=== PATIENT | female | born 1930 | race Caucasian/White ===

== ENCOUNTER 2016-11-25 13:08 | Inpatient (IN) ==
--- NOTE | 2016-11-25 13:27 | Emergency Department Note ---
Disposition Clinical Impression: Cerebrovascular accident (CVA) involving cerebellum Disposition: Admitted As Inpatient Condition: Fair Time of Disposition: 14:28 General Adult HPI - General Chief complaint: ED Altered Mental Status Stated complaint: AMS Time Seen by Provider: 11/25/16 13:14 Source: EMS Mode of arrival: EMS Limitations: altered mental status Nursing Notes Reviewed: Yes Vital Signs Reviewed: Yes - History of Present Illness HPI Narrative: 86-year-old female who has a history of hypertension who comes in today with the generalized weakness and some alteration in mental status. Patient is awake eyes are open but slow to respond on arrival. The daughter indicates that the patient does drink alcohol on a daily basis. Last known well is 1:30 PM on 2016. Onset (ago): unknown (Daughter dropped the patient off it 1:30 in the afternoon yesterday and she was found today in bed.) Pain Scale: 0 - Related Data Home Medications Medication Instructions Recorded Confirmed Cholecalciferol (Vitamin D3) 2,000 unit PO DAILY 11/25/16 11/25/16 [Vitamin D] Losartan/HCTZ [Hyzaar 50-12.5 1 each PO DAILY 11/25/16 11/25/16 Tablet] Meloxicam [Mobic] 7.5 mg PO DAILY 11/25/16 11/25/16 Allergies Allergy/AdvReac Type Severity Reaction Status Date / Time Unable to Assess Allergy Unverified 11/25/16 14:44 All systems ED: reviewed and negative except as stated. Constitutional: Denies: fever, chills, weakness, weight change Eyes: Denies: eye pain, eye discharge, vision change ENT ED: Denies: ear pain, throat pain, dental pain, hearing loss, epistaxis, congestion, dysphagia Cardiovascular: Denies: chest pain, palpitations, dyspnea on exertion, edema, syncope Respiratory: Denies: cough, dyspnea, wheezes, hemoptysis, stridor Gastrointestinal: Denies: abdominal pain, nausea, vomiting, diarrhea, constipation, hematemesis, melena, hematochezia Genitourinary: Denies: dysuria, frequency, hematuria, discharge Musculoskeletal: Denies: back pain, neck pain, arthralgia, myalgia Integumentary: Denies: rash, abrasion, lesions Neurological: Reports: weakness (Generalized). Denies: headache, numbness, paresthesias, confusion, abnormal gait, vertigo Psychiatric: Denies: anxiety, depression, suicidal thoughts, homicidal thoughts , auditory hallucinations, visual hallucinations Endocrine: Denies: fatigue Hematological/Lymphatic: Denies: easy bleeding, easy bruising Allergic/Immunologic: Denies: facial swelling, urticaria Past Medical History - Past Medical History Medical history: Reports: hypertension Psychiatric history: Reports: other - Social History Smoking Status: Former smoker Smokeless Tobacco Status: No Alcohol use: Reports: heavy Drug use: Reports: none Physical Exam - General Limitations: altered mental status General appearance: alert - Head Head exam: atraumatic, normocephalic, normal inspection - Eye Eye exam: Present: normal appearance, PERRL, EOMI - ENT ENT exam: normal exam, normal oropharynx, mucous membranes moist - Neck Neck exam: Present: normal inspection, full ROM, trachea midline - Chest Chest inspection: Present: normal inspection, symmetric chest wall rise - Respiratory Respiratory exam: Present: normal lung sounds bilaterally - Cardiovascular Cardiovascular exam: Present: regular rate, normal rhythm, normal heart sounds - Abdominal Exam Abdominal exam: Present: soft, Non-Tender. Absent: tenderness, distention, guarding, rebound, rigidity - Extremities Exam Extremities exam: Present: normal inspection, full ROM. Absent: tenderness, pedal edema - Expanded Lower Extremity Exam Neurovascular/Tendon exam: Absent: motor deficit, sensory deficit, tendon deficit Gait: not tested/not observed - Back Exam Back exam: Present: normal inspection, full ROM. Absent: tenderness - Neurological Exam Neurological exam: Present: alert, other (Patient is slow to response). Absent : motor sensory deficit - Psychiatric Psychiatric exam: Present: normal affect - Skin Skin exam: Present: warm, dry, intact, normal color Course - Reevaluation(s) Reevaluation #1: 86-year-old female who was her normal state of health dropped off by family yesterday about 1:30 PM this morning when the family tried to call she didn't answer they went over to her house and found her in the bed she couldn't get out. ER she is about 24 hours into her symptoms. She is awake but slow to respond. CT scan was obtained and shows a subacute versus acute cerebellar infarct. Case was discussed with neurology who feels that they are not a TPA candidate. Patient will be admitted to the hospitalist for further evaluation and treatment. Time: 15:33 - Consultations Consultation #1: Discussed with , not a TPA candidate based on onset of symptoms unknown up to 24 hours ago. Time: 14:27 Consultation #2: Discussed with Dr. Desai, admit. Time: 15:32 Vital Signs Temperature 97.4 F L 11/25/16 13:12 Pulse Rate 81 11/25/16 13:12 Respiratory Rate 18 11/25/16 13:12 Blood Pressure 187/108 11/25/16 13:12 O2 Sat by Pulse Oximetry 97 11/25/16 13:12 Temperature 97.4 F L 11/25/16 13:12 Pulse Rate 78 11/25/16 14:11 Respiratory Rate 18 11/25/16 14:11 Blood Pressure 171/96 11/25/16 14:11 O2 Sat by Pulse Oximetry 98 11/25/16 14:11 Oxygen Delivery Oxygen Delivery Room Air Medical Decision Making - Lab Data Lab results reviewed: Yes I reviewed the patient's lab results. Result diagrams: 11/25/16 13:53 11/25/16 13:53 Lab Results 11/25/16 11/25/16 11/25/16 Range/Units 13:18 13:53 13:53 WBC 11.2 H (4.3-11.1) K/mcL RBC 4.36 (3.82-4.97) M/mcL Hgb 13.5 (11.5-15.4) g/dL Hct 39.6 (35.3-44.9) % MCV 90.8 (83.0-100.0) fL MCH 31.0 (28.0-33.3) pg MCHC 34.1 (31.6-35.5) g/dL RDW 12.6 (11.5-14.5) % Plt Count 324 (140-400) K/mcL MPV 9.8 (9.4-12.4) fL Immature Gran % 0.4 (0-4) % Seg Neutrophils % 77.2 % Lymphocytes % 15.3 % Monocytes % 6.3 % Eosinophils % 0.4 % Basophils % 0.4 % Neutrophils # 8.6 (1.6-8.9) K/mcL Lymphocytes # 1.7 (0.6-4.6) K/mcL Monocytes # 0.7 (0.0-1.3) K/mcL Eosinophils # 0.1 (0.0-0.6) K/mcL Basophils # 0.0 (0.0-0.2) K/mcL PT 10.6 (9.4-12.1) Seconds INR 1.0 APTT 29.6 (26.0-36.0) Seconds Sodium (136-145) mEq/L Potassium (3.5-4.5) mEq/L Chloride (98-109) mEq/L Carbon Dioxide (19-29) mEq/L BUN (7-20) mg/dL Creatinine (0.57-1.11) mg/dL Est GFR ( Amer) (> 60) Est GFR (Non-Af Amer) (> 60) BUN/Creatinine Ratio (6-26) Glucose (70-99) mg/dL POC Glucose 97 H (58-89) Calculated Osmolality (280-300) Lactic Acid (0.5-2.2) mmol/L Calcium (8.6-10.8) mg/dL Total Bilirubin (0.2-1.2) mg/dL Direct Bilirubin (0.0-0.5) mg/dL Indirect Bilirubin (0.0-1.2) mg/dL AST (5-34) Units/L ALT (0-55) Units/L Alkaline Phosphatase (38-126) Units/L Troponin I (0-0.03) ng/mL Serum Total Protein (6.0-8.3) g/dL Albumin (3.5-5.0) g/dL Globulin (2.4-3.5) g/dL Albumin/Globulin Ratio (1.1-2.2) Ethyl Alcohol (0-10) mg/dL 11/25/16 11/25/16 11/25/16 Range/Units 13:53 13:53 13:53 WBC (4.3-11.1) K/mcL RBC (3.82-4.97) M/mcL Hgb (11.5-15.4) g/dL Hct (35.3-44.9) % MCV (83.0-100.0) fL MCH (28.0-33.3) pg MCHC (31.6-35.5) g/dL RDW (11.5-14.5) % Plt Count (140-400) K/mcL MPV (9.4-12.4) fL Immature Gran % (0-4) % Seg Neutrophils % % Lymphocytes % % Monocytes % % Eosinophils % % Basophils % % Neutrophils # (1.6-8.9) K/mcL Lymphocytes # (0.6-4.6) K/mcL Monocytes # (0.0-1.3) K/mcL Eosinophils # (0.0-0.6) K/mcL Basophils # (0.0-0.2) K/mcL PT (9.4-12.1) Seconds INR APTT (26.0-36.0) Seconds Sodium 141 (136-145) mEq/L Potassium 3.6 (3.5-4.5) mEq/L Chloride 106 (98-109) mEq/L Carbon Dioxide 27 (19-29) mEq/L BUN 15 (7-20) mg/dL Creatinine 0.78 (0.57-1.11) mg/dL Est GFR ( Amer) > 60 (> 60) Est GFR (Non-Af Amer) > 60 (> 60) BUN/Creatinine Ratio 19 (6-26) Glucose 106 H (70-99) mg/dL POC Glucose (58-89) Calculated Osmolality 293 (280-300) Lactic Acid (0.5-2.2) mmol/L Calcium 10.0 (8.6-10.8) mg/dL Total Bilirubin 0.8 (0.2-1.2) mg/dL Direct Bilirubin 0.3 (0.0-0.5) mg/dL Indirect Bilirubin 0.5 (0.0-1.2) mg/dL AST 18 (5-34) Units/L ALT 8 (0-55) Units/L Alkaline Phosphatase 74 (38-126) Units/L Troponin I 0.00 (0-0.03) ng/mL Serum Total Protein 6.7 (6.0-8.3) g/dL Albumin 3.7 (3.5-5.0) g/dL Globulin 3.0 (2.4-3.5) g/dL Albumin/Globulin Ratio 1.2 (1.1-2.2) Ethyl Alcohol < 10 (0-10) mg/dL 11/25/16 Range/Units 13:54 WBC (4.3-11.1) K/mcL RBC (3.82-4.97) M/mcL Hgb (11.5-15.4) g/dL Hct (35.3-44.9) % MCV (83.0-100.0) fL MCH (28.0-33.3) pg MCHC (31.6-35.5) g/dL RDW (11.5-14.5) % Plt Count (140-400) K/mcL MPV (9.4-12.4) fL Immature Gran % (0-4) % Seg Neutrophils % % Lymphocytes % % Monocytes % % Eosinophils % % Basophils % % Neutrophils # (1.6-8.9) K/mcL Lymphocytes # (0.6-4.6) K/mcL Monocytes # (0.0-1.3) K/mcL Eosinophils # (0.0-0.6) K/mcL Basophils # (0.0-0.2) K/mcL PT (9.4-12.1) Seconds INR APTT (26.0-36.0) Seconds Sodium (136-145) mEq/L Potassium (3.5-4.5) mEq/L Chloride (98-109) mEq/L Carbon Dioxide (19-29) mEq/L BUN (7-20) mg/dL Creatinine (0.57-1.11) mg/dL Est GFR ( Amer) (> 60) Est GFR (Non-Af Amer) (> 60) BUN/Creatinine Ratio (6-26) Glucose (70-99) mg/dL POC Glucose (58-89) Calculated Osmolality (280-300) Lactic Acid 1.1 (0.5-2.2) mmol/L Calcium (8.6-10.8) mg/dL Total Bilirubin (0.2-1.2) mg/dL Direct Bilirubin (0.0-0.5) mg/dL Indirect Bilirubin (0.0-1.2) mg/dL AST (5-34) Units/L ALT (0-55) Units/L Alkaline Phosphatase (38-126) Units/L Troponin I (0-0.03) ng/mL Serum Total Protein (6.0-8.3) g/dL Albumin (3.5-5.0) g/dL Globulin (2.4-3.5) g/dL Albumin/Globulin Ratio (1.1-2.2) Ethyl Alcohol (0-10) mg/dL - Radiology Data Radiology results reviewed: Yes I reviewed the patient's radiology results. Chest X-Ray 11/25/16 13:18 IMPRESSION: No acute cardiopulmonary disease is appreciated. D/ / Erik Gallardo MD / Erik Gallardo MD Interpreting Provider: Erik Gallardo MD Head CT 11/25/16 13:18 IMPRESSION: Areas of decreased attenuation without CSF equivalence in left cerebellar hemisphere concerning for areas of infarct felt more likely to be subacute, but acute infarct not excluded. Findings compatible with age related atrophy and likely chronic small vessel ischemic change along with multiple chronic lacunar infarcts to the basal ganglia bilaterally. Findings were discussed with Finn España at 1:57 pm on 11/25/2016. D/ / 11/25/2016 13:59:15 Sridhar Antoine MD / [place] Interpreting Provider: Sridhar Antoine MD - EKG Data EKG #1 EKG attestation: Yes I reviewed and interpreted this EKG. EKG shows normal: sinus rhythm Rate: normal Rhythm: NSR Interpretation: no acute changes NIH Stroke Scale - Level of Consciousness LOC: Alert - LOC Questions LOC Questions: Answers one correctly - LOC Commands LOC Commands: Performs both correctly - Best Gaze Best Gaze: Normal - Visual Visual: No visual loss - Facial Palsy Facial Palsy: Normal - Motor Arms Motor Arm-Left: No drift for 10 seconds Motor Arm-Right: No drift for 10 seconds - Motor Legs Motor Leg-Left: No drift for 5 seconds Motor Leg-Right: No drift for 5 seconds - Limb Ataxia Limb Ataxia: Normal, No Ataxia - Sensory Sensory: Normal - Best Language Best Language: No aphasia - Dysarthria Dysarthria: Mild, slurs some words - Extinction and Inattention Extinction and Inattention: Normal - NIHSS Total Score NIHSS Total Score: 2
[2016-11-25 14:06] LABS: Basophils % 0.4 %; Eosinophils # 0.1 K/mcL (0.0-0.6); Eosinophils % 0.4 %; Hematocrit 39.6 % (35.3-44.9); Hemoglobin 13.5 g/dL (11.5-15.4); Immature Granulocytes % 0.4 % (0-4); Lymphocytes # 1.7 K/mcL (0.6-4.6); Lymphocytes % 15.3 %; Mean Corpuscular HGB Conc 34.1 g/dL (31.6-35.5); Mean Corpuscular Volume 90.8 fL (83.0-100.0); Mean Platelet Volume 9.8 fL (9.4-12.4); Monocytes # 0.7 K/mcL (0.0-1.3); Monocytes % 6.3 %; Neutrophils # 8.6 K/mcL (1.6-8.9); Platelet Count 324 K/mcL (140-400); Red Blood Count 4.36 M/mcL (3.82-4.97); Red Cell Distribution Width 12.6 % (11.5-14.5); Segmented Neutrophils % 77.2 %
[2016-11-25 14:10] LABS: Prothrombin Time 10.6 Seconds (9.4-12.1)
[2016-11-25 14:12] LABS: Activated Partial Thrombo Time 29.6 Seconds (26.0-36.0)
[2016-11-25 14:17] LABS: Alanine Aminotransferase 8 Units/L (0-55); Albumin 3.7 g/dL (3.5-5.0); Albumin/Globulin Ratio 1.2 (1.1-2.2); Alkaline Phosphatase 74 Units/L (38-126); Aspartate Amino Transferase 18 Units/L (5-34); BUN/Creatinine Ratio 19 (6-26); Bilirubin,Direct 0.3 mg/dL (0.0-0.5); Bilirubin,Indirect 0.5 mg/dL (0.0-1.2); Bilirubin,Total 0.8 mg/dL (0.2-1.2); Blood Urea Nitrogen 15 mg/dL (7-20); Carbon Dioxide 27 mEq/L (19-29); Chloride 106 mEq/L (98-109); Glucose 106 mg/dL (70-99); Osmolality,Calculated 293 (280-300); Potassium 3.6 mEq/L (3.5-4.5); Sodium 141 mEq/L (136-145); Total Protein 6.7 g/dL (6.0-8.3); eGFR For African Americans > 60 (> 60); eGFR For Non-African Americans > 60 (> 60)
[2016-11-25] MEDS ORDERED: Naloxone 0.4 MG/ML INJ IVP PRN (17:16)
--- NOTE | 2016-11-25 17:51 | Internal Med History&Physical ---
Date of Encounter: 11/25/16 Time of Encounter: 16:30 Assessment and Plan (1) Cerebrovascular accident (CVA) involving cerebellum Current visit: Yes Status: Acute Assess: Mrs. Corral is a 86 year old female who presents from the ED after suffering an apparent CVA. Patient is able to understand some words but cannot communicate fully to questions posed to her. Attempt made to have her squeeze fingers in response to questions, but patient was unable to do this. All information regarding the patient and her current status was obtained from three family members who were present in the ED. According to family members, Mrs. Corral has been experiencing forgetfulness, unsteadiness on her feet, has become less talkative, and has complained of double vision for the past several months. Her family reports that she fell in the bath tub 3-4 weeks ago. Her family states that Mrs. Corral was out with family members yesterday paying bills and doing errands. They dropped her off at her apartment yesterday afternoon around 1:30 p.m. where she lives independently. Family members attempted to get a hold of Mrs. Corral this morning several times unsuccessfully. One family member went to check on her around noon and entered her residence to find her still in bed and stating that she couldn't get out of bed. They called for assistance and family members stated that Mrs. Corral's condition declined rapidly by the time responders were able to arrive. CT of the head dated 11/25/16 shows areas of decreased attenuation without CSF equivalent and left cerebellar hemisphere concerning for areas of infarct felt more likely to be subacute, but acute infarct not excluded. Findings compatible with age-related atrophy and likely chronic small vessel ischemic change along with multiple chronic lacunar infarcts to the basal ganglia bilaterally. Due to the fact she is 24 hours and her symptoms neurology feels she is not a TPA candidate. Plan: Neurology consult ordered by Dr. España MR angio of head w/o contrast ordered MR head/brain w/o contrast ordered Blood cultures ordered U/A ordered NIHSS Q4 for 12 hours EV bilaeral carotid duplex imaging ordered EV echocardiogram ordered Patient's vital signs to be monitored Patient to be monitored for neurological decline SW consult ordered PT consult ordered OT consult ordered Speech Therapy consult ordered (2) DVT prophylaxis Current visit: Yes Status: Acute Assess: Patient to receive DVT prophylaxis due to bed rest status, altered mental status , and CVA diagnosis. Plan: SCDs for calves ordered bilaterally Monitor patient closely Internal Medicine - H&P: HPI Chief complaint: CVA Admitted From: Emergency Dept Plans for Post Hospital Care: Transfer Inp Rehab Fac History of present illness: Mrs. Corral is a 86 year old female who presents from the ED after suffering an apparent CVA. Patient is able to understand some words but cannot communicate fully to questions posed to her. Attempt made to have her squeeze fingers in response to questions, but patient was unable to do this. All information regarding the patient and her current status was obtained from three family members who were present in the ED. According to family members, Mrs. Corral has been experiencing forgetfulness, unsteadiness on her feet, has become less talkative, and has complained of double vision for the past several months. Her family reports that she fell in the bath tub 3-4 weeks ago. Her family states that Mrs. Corral was out with family members yesterday paying bills and doing errands. They dropped her off at her apartment yesterday afternoon around 1:30 p.m. where she lives independently. Family members attempted to get a hold of Mrs. Corral this morning several times unsuccessfully. One family member went to check on her around noon and entered her residence to find her still in bed and stating that she couldn't get out of bed. They called for assistance and family members stated that Mrs. Corral's condition declined rapidly by the time responders were able to arrive. CT of the head dated 11/25/16 shows areas of decreased attenuation without CSF equivalent and left cerebellar hemisphere concerning for areas of infarct felt more likely to be subacute, but acute infarct not excluded. Findings compatible with age-related atrophy and likely chronic small vessel ischemic change along with multiple chronic lacunar infarcts to the basal ganglia bilaterally. Due to the fact she is 24 hours and her symptoms neurology feels she is not a TPA candidate. Mrs. Corral has no legal POA at this time, so Social Work consult placed. Consult for neurology was placed by Dr. España earlier today and confirmed. Consults for OT, PT, and Speech therapy also ordered. Patient to be placed as inpatient status with NIH Stroke Scale ordered Q4 over 12 hours. Plan of care following discharge discussed with family members who stated Mrs. Corral will either go to a rehab facility or be cared for by family members. Code status was also discussed with family members who stated Mrs. Corral's wishes were DNR-CCA. Patient placed NPO status with EV echocardiogram and EV bilateral carotid duplex imaging ordered. Patient to be monitored closely for signs of neurological decline. Past Med Surg Social Fam HX - Past Medical History Medical history: hypertension Psychiatric history: other - Social History Smoking Status: Former smoker Smokeless Tobacco Status: No Alcohol use: heavy Drug use: none Occupational status: retired Current living situation: Home - Independent Activity Level: Independent ambulation Recent Out of Country Travel Within the Last 8 Weeks: No Exposure or Possible Exposure to Illness During Travel: No - Family History Mother Race: Family Member Ethnicity: Non- Living Status: Age at : 90 Hx Family Cardiac Disorders: Yes (ME) Father Race: Family Member Ethnicity: Non- Living Status: Age at : 96 Hx Family Neurologic Disorders: Yes (Alzheimer's) Brother Race: Family Member Ethnicity: Non- Living Status: Age at : 60 Hx Family Cancer: Yes Sister Race: Family Member Ethnicity: Non- Living Status: Still Living Hx Family Cardiac Disorders: Yes (HD) Internal Medicine - H&P: Meds Cholecalciferol (Vitamin D3) [Vitamin D] 2,000 unit PO DAILY 11/25/16 [History] Losartan/HCTZ [Hyzaar 50-12.5 Tablet] 1 each PO DAILY 11/25/16 [History] Meloxicam [Mobic] 7.5 mg PO DAILY 11/25/16 [History] Allergies Unable to Assess Allergy (Unverified 11/25/16 14:44) AMS pt unable to confirm ROS unobtainable: due to mental status (Information taken from family members present ) All Systems PM: A 10-system review of systems was performed and is negative for pertinent findings except as documented above in the HPI. - Constitutional Constitutional: as per HPI, falls, weakness Additional comments: Patient's family states that the patient was experiencing weakness and falls over the past several months. They report the patient fell in the bath tub 3-4 weeks ago. - EENT Eyes: change in vision (Patient's family reports Mrs. Corral was experiencing double vision for the past several months) - Cardiovascular Cardiovascular ROS IM: lightheadedness, other Additional comments: Patient's family reports that Mrs. Corral has been experiencing lightheadedness and dizziness over the past several months as well as instability on her feet. - Musculoskeletal Musculoskeletal ROS IM: limited range of motion (Patient's daughter reports that Mrs. Corral would shuffle her feet in small movements to walk) - Neurological Neurological ROS: as per HPI, abnormal gait (Patient's daughter reports that Mrs. Corral would shuffle her feet in small movements to walk), behavioral changes, dizziness, lack of coordination, loss of vision, memory loss - Constitutional Vitals: Temp Pulse Resp BP Pulse Ox 97.4 F L 80 18 166/96 99 11/25/16 13:12 11/25/16 16:15 11/25/16 17:10 11/25/16 17:10 11/25/16 16:15 General appearance: Present: A&O X 0 (Patient non-responsive to questions during examinaton) - Head Head exam: Present: atraumatic, normocephalic - Eye Eye exam: Present: PERRL, conjuntiva pink, sclera anicteric Pupils: Present: PERRL - ENT ENT exam: Present: normal exam - Neck Neck exam general surgery: Present: normal inspection - Respiratory Respiratory exam: Present: CTAB. Absent: accessory muscle use, rales, rhonchi, wheezes - Cardiovascular Cardiovascular exam: Present: RRR, +S1, +S2. Absent: diastolic murmur, gallop, rubs, systolic murmur - GI/Abdominal GI/Abdominal exam: Present: normal bowel sounds, soft, no peritoneal signs. Absent: distended, tenderness - Rectal Rectal exam: Present: deferred - Additional comments: exam deferred. - Extremities Exam Extremities exam: Present: warm, radial pulses palpable and symetrical. Absent : calf tenderness, cyanotic, pedal edema - Neurological Exam Neurological exam: Present: altered, speech deficit - Skin Skin exam: Present: dry, intact Internal Med - H&P Results - Labs CBC & Chem 7: 11/25/16 13:53 11/25/16 13:53 - EKG Data EKG shows normal: sinus rhythm - EKG Data Prior EKG available for review: no EKG comments: 11/25/16 18:39 EKG dated 11/25/16 shows sinus rhythm with minimal ST depression. - Diagnostic Studies Chest x-ray Additional comments: 1-View CXR dated 11/25/16 shows the cardiac silhouette is normal. Thoracic aorta is normal in caliber. Hilar contours are normal. There is no focal airspace disease. There are no pleural effusions. Calcifications of the right coracoclavicular ligament is noted. No acute cardiopulmonary disease is appreciated. CT scan - head Additional comments: CT of head/brain without contrast dated 11/25/16 shows areas of decreased attenuation without CSF equivalence in left cerebellar hemisphere concerning for areas of infarct felt more likely to be subacute, but acute infarct not excluded. Findings compatible with age-related atrophy and likely chronic small vessel ischemic change along with multiple chronic lacunar infarcts to the basal ganglia bilaterally.
--- NOTE | 2016-11-25 18:28 | Neurology - Consult Note ---
Date of Encounter: 11/25/16 Time of Encounter: 18:21 Assessment and Plan (1) Cerebrovascular accident (CVA) involving cerebellum Current Visit: Yes Status: Acute Apparently patient developed left cerebellar infarct. This could be embolic, or thrombotic or occlusion involving the posterior circulation or could be Wallenberg syndrome related to PICA occlusion. Will certainly need stroke work up including MRI of brain, MRA of brain, carotid artery duplex study, and will start her on Aspirin 81mg daily for secondary CVA prevention. Check lipid panel and treat accordingly. The size of the left cerebellar infarct is large and therefore associated with risk of brainstem compression which at times which can cause abrupt respiratory failure and which require surgical decompression. This was discussed with patient's daughter who requested no aggressive surgical intervention. The patient is an elderly lady and does have cerebral atrophy therefore the likelihood of brainstem compression is unlikely. Please continue medical and supportive care. DVT prophylaxis, Swallow and speech evaluation in process already. History of Present Illness Chief complaint: weakenss and difficulty talking HPI: Ms. Corral is a 86 year old female with PMH significant for HTN, right arm weakness, right CTS who developed acute onset of speech difficulty, weakness with CT of head finding of new ischemiic infarct. Last known well about 24 hours ago. Her daughter states that the patient has HTN and right hip pain, and baselien right arm weakness but she is typically very functional. Patient was found acutely weakness and unable to talk and then rapidly declined. In ER it was reported that the patient unable to move her arms and legs, and she could not verbalize. CT of head showed subacute left cerebellar infarct quite large in size but no edema or mass effect and no midline shift noted. Patient determined not to be a tPA thrombolysis therapy due to her already out of window for tPA. No history of atrial fibrillation Past Med Surg Social Fam HX - Past Medical History Medical history: hypertension Psychiatric history: other - Social History Smoking Status: Former smoker Smokeless Tobacco Status: No Alcohol use: heavy Drug use: none Medications and Allergies Cholecalciferol (Vitamin D3) [Vitamin D] 2,000 unit PO DAILY 11/25/16 [History] Losartan/HCTZ [Hyzaar 50-12.5 Tablet] 1 each PO DAILY 11/25/16 [History] Meloxicam [Mobic] 7.5 mg PO DAILY 11/25/16 [History] Allergies Unable to Assess Allergy (Unverified 11/25/16 14:44) AMS pt unable to confirm All Systems: A 10-system review of systems was performed and is negative for pertinent findings except as documented above in the HPI. Physical Examination - Vital Signs Vital Signs: Initial Vital Signs Temp Pulse Resp BP Pulse Ox 97.4 F L 81 18 187/108 97 11/25/16 13:12 11/25/16 13:12 11/25/16 13:12 11/25/16 13:12 11/25/16 13:12 - Constitutional General appearance: other (Patient appears in no acute distress, but unable to verbalize. Able to turn head to make eye contact. Mouth open) - Neurologic Sensorimotor examination: other (Unable to assess) Detailed motor examination: other (u) Motor examination - right side: 4/5: compressor engineer Motor examination - left side: 4/5: compressor engineer Detailed sensory examination: other (unable to assess) Posture: other (None) Reflexes: Biceps: 1+, Triceps: 1+, Brachioradialis: 1+, Patella: 1+, Achilles: 1 + Mental Status Examination: awake, alert, opens eyes to voice, makes eye contact , follows simple commands, answers questions by nodding yes or no (Patient is able to try to follow commands, for example she tried to protrude her tongue, but could not get her tongue out fully. ) Cranial nerve examination: EOMI (Reduce eye movements and unable to gaze upward or downward. Able to turn head slowly to look at her daughter, when ecnouraged) , visual hatfield intact (Unable to assess. ), corneal reflexes brisk symmetrically, sensory to face intact (Unabe to assess), no facial asymmetry is present, no dysarthria (Patient is mute. ), hearing is intact symmetrically ( Unable to assess), soft palate elevates bilaterally upon phonation (Diminished) , tongue protrudes midline (Unable to fully assess) Results - Laboratory Findings CBC and BMP: 11/25/16 13:53 11/25/16 13:53 Abnormal lab findings: Abnormal lab results WBC 11.2 K/mcL (4.3-11.1) H 11/25/16 13:53 Glucose 106 mg/dL (70-99) H 11/25/16 13:53 POC Glucose 104 (58-89) H 11/25/16 18:09 Consult Discharge Plan - Plan Referrals: Trinity Mcdaniels, MARIELA [Primary Care Provider] -
--- NOTE | 2016-11-25 18:44 | Event Note ---
Date of Encounter: 11/25/16 Time of Encounter: 18:42 Patient seen and examined with nurse practitioner. Acute left cerebellar stroke. Stroke workup. NIHSS q 4. Neurology evaluation. Physical therapy and social services coordinator will see for possible skilled care. NPO to swallow Geena. She is due not resuscitate but OK with intubation for respiratory purposes
[2016-11-26 01:18] LABS: Bilirubin,Urine Negative (Negative); Blood,Urine Negative (Negative); Clarity,Urine Turbid (Clear); Color,Urine Yellow (Yellow); Glucose,Urine (UA) Normal (Normal); Ketones,Urine Negative (Negative); Leukocyte Esterase,Urine Negative (Negative); Nitrite,Urine Negative (Negative); PH,Urine 7.5 pH Units (5.0-8.0); Protein,Urine Negative (Neg-Trace); Specific Gravity,Urine 1.017 (1.010-1.025); Urobilinogen,Urine Normal (Normal)
[2016-11-26 01:20] LABS: Bacteria,Urine None Seen per hpf (None-Few); Hyaline Casts,Urine None Seen per lpf (None-Few); Squamous Epithelial Cell,Urine Many per lpf (None-Few); WBC,Urine 0-3 per hpf (0-3)
--- NOTE | 2016-11-26 09:38 | Internal Med Progress Note ---
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 Family at bedside, educated about prognosis and risk of respiratory failure She verbalized understanding Per patient's wishes before admission, she is DNR/DNI Speech/PT/OT to see Continue Rectal ASA PO Liptor when able to tolerate Follow ECHO and Carotid doppler Prognosis is grave, condition is critical (2) Hypertension Current Visit: Yes Status: Chronic Assessment and plan: Allow permissive HTN 2.5mg IV lopressor for SBP>180, DBP>110 Qualifiers: Hypertension type: essential hypertension Qualified Code(s): I10 - Essential (primary) hypertension (3) DVT prophylaxis Current Visit: Yes Status: Acute Assessment and plan: Lovenox SQ daily (4) Hyperlipidemia Current Visit: Yes Status: Chronic Assessment and plan: Continue atorvastatin Lipid panel noted Qualifiers: Hyperlipidemia type: unspecified Qualified Code(s): E78.5 - Hyperlipidemia , unspecified - Subjective Interval history: 86 F Being managed for Acute L cerebella CVA in PICA territory Seen at bedside with RN and family Speech/PT/OT eval pending ECHO and Carotid reports are pending Patient is altered, aphasic, history obtained from family at bedside - Constitutional Vitals: Temp Pulse Resp BP Pulse Ox 98.2 F 82 12 142/83 99 11/26/16 07:27 11/26/16 07:27 11/26/16 07:27 11/26/16 07:27 11/26/16 07:27 VSS. BP 189/90 Neuro: Sleeping., responds to noxious stimuli, pupils are 3mm, equal and reactive bilaterally, R facial droop, R dense hemiparesis, aphasis. NIHSS at lest 4X-Unable to assess orientation/sensory loss, due to aphasia and altered status HEENT: Moist oral mucosa Chest: CTAB Heart: S1, S2 , RRR, no m/g/r Abdomen: soft, non-tender Extremities: No edema General appearance: Present: A&O X 0 (Patient non-responsive to questions during examinaton) Internal Medicine: Result - Labs CBC & Chem 7: 11/25/16 13:53 11/25/16 13:53 Labs: Urine 11/26/16 Range/Units 01:10 Urine Color Yellow (Yellow) Urine Clarity Turbid A (Clear) Urine pH 7.5 (5.0-8.0) pH Units Ur Specific [place] 1.017 (1.010-1.025) Urine Protein Negative (Neg-Trace) mg/dL Urine Glucose (UA) Normal (Normal) mg/dL - ABG Interpretation ABG results: PT/INR, D-dimer PT 10.6 Seconds (9.4-12.1) 11/25/16 13:53 - Impressions Impressions Brain MRI 11/25/16 18:44 IMPRESSION: 1. Large area of acute/early subacute infarction in the left cerebellum within the left posterior inferior cerebellar artery vascular territory. No associated hemorrhage. 2. Diffuse age-related parenchymal volume loss and sequela of moderate chronic microvascular ischemic changes and old bilateral basal ganglia lacunar infarctions. 3. Loss of normal flow related enhancement within much of the left intradural vertebral artery and basilar artery which may be due to slow flow due to severe stenosis or occlusion. The posterior cerebral arteries are not seen. Further evaluation with CTA of the head is recommended. The findings were sent to the Radiology Results Communication Center at 8:16 pm on 11/25/2016to be communicated to a licensed caregiver. D/ / 11/25/2016 20:22:06 Silvia Flynn MD / jennifer Interpreting Provider: Silvia Flynn MD Head MRA 11/25/16 18:44 IMPRESSION: 1. Large area of acute/early subacute infarction in the left cerebellum within the left posterior inferior cerebellar artery vascular territory. No associated hemorrhage. 2. Diffuse age-related parenchymal volume loss and sequela of moderate chronic microvascular ischemic changes and old bilateral basal ganglia lacunar infarctions. 3. Loss of normal flow related enhancement within much of the left intradural vertebral artery and basilar artery which may be due to slow flow due to severe stenosis or occlusion. The posterior cerebral arteries are not seen. Further evaluation with CTA of the head is recommended. The findings were sent to the Radiology Results Communication Center at 8:16 pm on 11/25/2016to be communicated to a licensed caregiver. D/ / 11/25/2016 20:22:06 Silvia Flynn MD / jennifer Interpreting Provider: Sivlia Flynn MD - VTE Documentation of Mechanical Device: Intermittent pneumatic compression device Consult Discharge Plan - Plan Referrals: Trinity Mcdaniels, STONEWORKER [Primary Care Provider] - (OFFICE WILL NOT MAKE AN APPOINTMENT UNTIL THE DISCHARGE ORDER IS WRITTEN. THE OFFICE IS OPEN ON SATURDAYS FROM 8AM TO NOON) Jyoti Davis MD [Partnered Physician] -
[2016-11-26 10:11] LABS: Chol/HDL Ratio 6.6 (0-4.9)
[2016-11-26] MEDS ORDERED: *HR* Enoxaparin 30 MG/0.3 ML SYRINGE SQ SCH (10:24)
--- NOTE | 2016-11-26 10:31 | Electrocardiograph Report ---
[address] [address] Test Date: 2016-11-25 Pat Name: Agnes Corral Department: 104 Room: 2N04 Gender: F Chief Relay Tester: : 1930 Requested By: Finn España Order Number: [id number] Reading MD: Al Gutiérrez Measurements Intervals [place] Rate: 80 P: 52 NC: 153 QRS: -3 QRSD: 81 T: 71 QT: 404 QTc: 440 Interpretive Statements SINUS RHYTHM MINIMAL ST DEPRESSION INTERPRETATION BASED ON A DEFAULT AGE OF 40 YEARS Electronically Signed On 11-26-2016 10:29:26 EDT by Al Gutiérrez
[2016-11-26] MEDS: *HR* Enoxaparin 40 MG/0.4 ML SYRINGE SQ SCH (10:43)
[2016-11-26] MEDS ORDERED: *HR* Metoprolol 5 MG/5 ML VIAL IVP PRN (11:10)
--- NOTE | 2016-11-26 15:56 | Neurology Progress Note ---
Date of Encounter: 11/26/16 Time of Encounter: 15:54 Assessment and Plan (1) Cerebrovascular accident (CVA) involving cerebellum Current Visit: Yes Status: Acute MRI of brain confirmed larger left cerebellar infarct, no mass effect, no hemorrhage, no brainstem compression. Patient is currently drowsy due to likely being in sleep stage and mental status likely to improve once waking up. Currently being evaluated for swallow and will evaluate closely for need for tube feeding. cerebral infarct may contribute to inco-ordination of muscle activity but does not cause weakness. Continue aspirin RC 300mg daily. Continue medical and supportive. Will review Echo and Carotid artery duplex study. Patient will likely needing assisted care. Subjective Principal diagnosis: CVA Interval history: Patient seen and examined. She is essentially sleeping now. Difficulty to wake up but probably would if given stronger stimulation. Vitals appears stable. MRI of brain and MRA of brain completed showed left cerebellar infarct same extent at the CT of head showed. Possible left vertebral, basilar artery slow flow or occlusion reported per MRA of brain. Patient is to go for testing. Objective - Constitutional Vitals: Temp Pulse Resp BP Pulse Ox 98.3 F 82 16 154/85 98 11/26/16 15:30 11/26/16 15:30 11/26/16 15:30 11/26/16 15:30 11/26/16 15:30 - Neurological Exam Sensorimotor examination: Present: other (Unable to assess) Motor Examination: Present: other (Unable to assess due to hypersomnia/sleeping) Motor examination - left side: 4/5: inside sales coordinator Sensation intact: Present: other (unable to assess) Posture: Present: other (None) Reflex and gait examination: other (Unable to assess) Reflexes: Biceps: 1+, Triceps: 1+, Brachioradialis: 1+, Patella: 1+ Mental Status Examination: Present: stupor (Patient appears sleeping. Has mild faint snores. vitals appear stable.) Cranial nerve examination: Present: PERRL, no facial asymmetry is present - VTE Documentation of Mechanical Device: Intermittent pneumatic compression device Results - Laboratory Findings CBC and BMP: 11/25/16 13:53 11/25/16 13:53 Abnormal lab findings: Abnormal lab results WBC 11.2 K/mcL (4.3-11.1) H 11/25/16 13:53 Glucose 106 mg/dL (70-99) H 11/25/16 13:53 POC Glucose 108 (58-89) H 11/25/16 21:01 Triglycerides 257 mg/dL (< 150) H 11/26/16 09:43 Cholesterol 283 mg/dL (< 200) H 11/26/16 09:43 LDL Cholesterol, Calc 189 mg/dL (0-99) H 11/26/16 09:43 VLDL Cholesterol, Calc 51 mg/dL (< 31) H 11/26/16 09:43 Cholesterol/HDL Ratio 6.6 (0-4.9) H 11/26/16 09:43 Urine Clarity Turbid (Clear) A 11/26/16 01:10 Urine Microscopic RBC 3-5 per hpf (0-3) H 11/26/16 01:10 Ur Squamous Epith Cells Many per lpf (None-Few) H 11/26/16 01:10 Consult Discharge Plan - Plan Referrals: Trinity Mcdaniels, SENIOR PATIENT ACCOUNT REPRESENTATIVE [Primary Care Provider] - (OFFICE WILL NOT MAKE AN APPOINTMENT UNTIL THE DISCHARGE ORDER IS WRITTEN. THE OFFICE IS OPEN ON SATURDAYS FROM 8AM TO NOON) Jyoti Davis MD [Partnered Physician] -
--- NOTE | 2016-11-26 16:08 | ECHO - Doppler Report ---
Echo with Saline Contrast Name: Agnes Corral Date of Study: 11/26/2016 Date: 1930 Ht: 63.0 in Medical Record#: [id number] Age: 86 Wt: 124.0 lb Gender: Female BSA: 1.58 Order #: [id number] Location: [facility] Room #: 2N02 Reading Physician: Pelon Blanco MD, [facility] Clean Out Driller Helper: Lisa Caruso RVT Ordering Physician: John Roper CNP Primary Physician: Trinity Mcdaniels CNP Indications: Cerebrovascular Accident Impressions: Normal LV systolic function, LVEF 60-65%. Mild concentric left ventricular hypertrophy. Mild left ventricular diastolic dysfunction. Normal right ventricular size and function. Mild aortic regurgitation. Unable to estimate RVSP due to lack of TR jet. No evidence of intracardiac shunting with agitated saline contrast. There is a small pericardial effusion present. There is no echocardiographic evidence of tamponade. Left Ventricular Wall Motion: Rest Echo Findings All wall segments showed normal motion. Findings: Study Quality * Suboptimal echo windows. ECG Findings * Normal sinus rhythm. Left Ventricle * Normal LV systolic function, LVEF 60-65%. * Mild concentric left ventricular hypertrophy. * Mild left ventricular diastolic dysfunction. Right Ventricle * Normal right ventricular size and function. Left Atrium * Normal left atrial size. Right Atrium * Normal right atrial size. Interatrial Septum * Lipomatous interatrial septum. * No evidence of intracardiac shunting with agitated saline contrast. Aorta * Normally sized aortic root. Pericardium * There is a small pericardial effusion present. * There is no echocardiographic evidence of tamponade. IVC * Normal IVC dimensions and inspiratory collapse. Aortic Valve * Aortic valve not well visualized. Appears trileaflet with mild sclerosis. * No aortic stenosis. * Mild aortic regurgitation. Mitral Valve * Mildly thickened mitral valve leaflets. * No mitral stenosis. * Trace mitral regurgitation. Tricuspid Valve * Normal tricuspid valve structure. * No tricuspid stenosis. * Trace tricuspid regurgitation. * Unable to estimate RVSP due to lack of TR jet. Pulmonic Valve * Pulmonic valve not well visualized. * No pulmonic stenosis. * No pulmonic regurgitation. Contrast: Agitated saline 20 ml. Measurements: BP: 168/ 96 2D Normal Values RVIDd: 2.80 cm IVSd: 1.20 cm 0.6 - 1.0 cm LVIDd: 3.60 cm 3.7 - 5.6 cm LVPWd: 1.20 cm 0.6 - 1.1 cm LVIDs: 2.40 cm 1.5 - 3.6 cm AO: 2.90 cm < 4.0 cm %FS: 33.30 cm >25 % LA volume: 18 Mitral Valve Peak E:.56 m/sec Peak A:.78 m/sec E/A Ratio:0.7 Updated by Pelon Blanco MD, [facility] on 11/26/2016 4:03:46 PM electronically signed on 11/26/2016 4:04:16 PM with status of Final Wall Motion Fraga: 1=Normal, 2=Hypokinesis, 3=Akinesis, 4=Dyskinesis, 5=Aneurysmal, 6=Hyperkinetic, X=Not Visualized (Blank)=Missing
[2016-11-26] MEDS: D5% in 0.9% NACL 1,000 ML IVC SCH (17:29)
[2016-11-27] MEDS: *HR* Enoxaparin 40 MG/0.4 ML SYRINGE SQ SCH (05:49)
[2016-11-27] MEDS: D5% in 0.9% NACL 1,000 ML IVC SCH (05:50)
[2016-11-27] MEDS ORDERED: Pantoprazole 40 MG VIAL IVP SCH (07:30)
[2016-11-27] MEDS ORDERED: 0.9 % Sodium Chloride 1,000 ML IVC SCH (08:15)
[2016-11-27 08:57] LABS: Basophils % 0.2 %; Eosinophils # 0.1 K/mcL (0.0-0.6); Eosinophils % 0.5 %; Hematocrit 39.7 % (35.3-44.9); Hemoglobin 13.5 g/dL (11.5-15.4); Immature Granulocytes % 0.5 % (0-4); Immature Platelets 2.4 % (1.1-6.1); Lymphocytes # 2.1 K/mcL (0.6-4.6); Lymphocytes % 16.4 %; Mean Corpuscular Volume 91.1 fL (83.0-100.0); Neutrophils # 9.5 K/mcL (1.6-8.9); Platelet Count 275 K/mcL (140-400); Red Blood Count 4.36 M/mcL (3.82-4.97); Red Cell Distribution Width 12.5 % (11.5-14.5); Segmented Neutrophils % 74.4 %
--- NOTE | 2016-11-27 09:09 | Internal Med Progress Note ---
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 Patient now with evidence of central fever and raised intracranial pressure with L pupil greater than right and posturing Reepat Head CT ordered STAT, will follow Family at bedside, educated about prognosis and risk of respiratory failure, they wish she could either go home or to skilled nursing ECHO/Carotids unremarkable Continue Rectal ASA PO Liptor when able to tolerate Patient has been unresponsive for >24 hours, I suspect she may not survive this episode Consult palliative Prognosis is grave, condition is critical Neurology input appreciated (2) Hypertension Current Visit: Yes Status: Chronic Assessment and plan: BP has remained WNL without medications 2.5mg IV lopressor for SBP>180, DBP>110 Qualifiers: Hypertension type: essential hypertension Qualified Code(s): I10 - Essential (primary) hypertension (3) DVT prophylaxis Current Visit: Yes Status: Acute Assessment and plan: Hold lovenox.High risk for hemorrhagic conversion (4) Hyperlipidemia Current Visit: Yes Status: Chronic Assessment and plan: Continue atorvastatin Lipid panel noted Qualifiers: Hyperlipidemia type: unspecified Qualified Code(s): E78.5 - Hyperlipidemia , unspecified (5) Fever Current Visit: Yes Status: Acute Assessment and plan: possibly intra-cranial Blood culture on arrival 11/25 negative Repeat blood culture sent CXR no infiltrates Will not start any antibiotics as we have no source Qualifiers: Fever type: unspecified Qualified Code(s): R50.9 - Fever, unspecified - Subjective Interval history: 86 F Being managed for Acute L cerebella CVA in PICA territory Seen at bedside with RN and family Patient remains aphasic, unresponsive She had 2 episodes of fever overnight, possibly central She remains hemiplagic on the R side Today her L pupil is larger than the right ECHO essentially normal for age, with no evidence of intracardiac shunt, Doppler of carotids with no stenosis CXR no infiltrates patient has not been responsive to speech/PT/OT, hence no official review neurologist input appreciated Repeat Head CT has been ordered, Will follow, and depending on the result may consult palliative care Condition is critical, prognosis is grave Repeat Brain CT with evolution of infarcts, new R cerebellar infarct, with mass effect Family does not want any aggressive care at this time - Constitutional Vitals: Temp Pulse Resp BP Pulse Ox 99.1 F 79 14 142/80 93 11/27/16 08:03 11/27/16 08:03 11/27/16 08:03 11/27/16 08:03 11/27/16 08:03 General appearance: Present: A&O X 0 (Unresponsive ) Exam: VSS. BP 189/90 Neuro: Unresponsive, moves L UE to noxious stimuli, pupils are 4mm on the left and 2mm on the right, no corneal or doll reflex, R facial droop, R dense hemiparesis, aphasis. NIHSS at lest 4X-Unable to assess orientation/sensory loss , due to aphasia and altered status HEENT: Moist oral mucosa Chest: CTAB Heart: S1, S2 , RRR, no m/g/r Abdomen: soft, non-tender Extremities: No edema Internal Medicine: Result - Labs CBC & Chem 7: 11/27/16 08:29 11/25/16 13:53 Labs: Short CBC 11/27/16 Range/Units 08:29 WBC 12.8 H (4.3-11.1) K/mcL Hgb 13.5 (11.5-15.4) g/dL Hct 39.7 (35.3-44.9) % Plt Count 275 (140-400) K/mcL Neutrophils # 9.5 H (1.6-8.9) K/mcL - ABG Interpretation ABG results: PT/INR, D-dimer PT 10.6 Seconds (9.4-12.1) 11/25/16 13:53 - Impressions Impressions Brain MRI 11/25/16 18:44 IMPRESSION: 1. Large area of acute/early subacute infarction in the left cerebellum within the left posterior inferior cerebellar artery vascular territory. No associated hemorrhage. 2. Diffuse age-related parenchymal volume loss and sequela of moderate chronic microvascular ischemic changes and old bilateral basal ganglia lacunar infarctions. 3. Loss of normal flow related enhancement within much of the left intradural vertebral artery and basilar artery which may be due to slow flow due to severe stenosis or occlusion. The posterior cerebral arteries are not seen. Further evaluation with CTA of the head is recommended. The findings were sent to the Radiology Results Communication Center at 8:16 pm on 11/25/2016to be communicated to a licensed caregiver. D/ : / 11/25/2016 20:22:06 Silvia Flynn MD / jennifer Interpreting Provider: Silvia Flynn MD Head MRA 11/25/16 18:44 IMPRESSION: 1. Large area of acute/early subacute infarction in the left cerebellum within the left posterior inferior cerebellar artery vascular territory. No associated hemorrhage. 2. Diffuse age-related parenchymal volume loss and sequela of moderate chronic microvascular ischemic changes and old bilateral basal ganglia lacunar infarctions. 3. Loss of normal flow related enhancement within much of the left intradural vertebral artery and basilar artery which may be due to slow flow due to severe stenosis or occlusion. The posterior cerebral arteries are not seen. Further evaluation with CTA of the head is recommended. The findings were sent to the Radiology Results Communication Center at 8:16 pm on 11/25/2016to be communicated to a licensed caregiver. D/ : / 11/25/2016 20:22:06 Silvia Flynn MD / jennifer Interpreting Provider: Silvia Flynn MD Chest X-Ray 11/27/16 08:05 IMPRESSION: Overall stable appearing chest without acute focal infiltrate identified. D/ / Ede Oliva MD / Ede Oliva MD Interpreting Provider: Ede Oliva MD - VTE Documentation of Mechanical Device: Intermittent pneumatic compression device Consult Discharge Plan - Plan Referrals: Trinity Mcdaniels, TELECOMMUNICATIONS ADMINISTRATOR [Primary Care Provider] - (OFFICE WILL NOT MAKE AN APPOINTMENT UNTIL THE DISCHARGE ORDER IS WRITTEN. THE OFFICE IS OPEN ON SATURDAYS FROM 8AM TO NOON) Jyoti Davis MD [Partnered Physician] -
--- NOTE | 2016-11-27 10:13 | Neurology Progress Note ---
Date of Encounter: 11/27/16 Time of Encounter: 09:51 Assessment and Plan (1) Cerebrovascular accident (CVA) involving cerebellum Current Visit: Yes Status: Acute Patient developed acute mental status changes, characterized by persistent somnolence with development of mild fever. Due to the large sized cerebellar infarct, will obtain stat CT of head without contrast to assess possible changes , especially brain stem herniation or cerebral hemorrhage. Patient's vitals appear stable. Will discuss with the family members regarding neurological prognosis and plan of care. Patient is DNR status per medical records. Subjective Principal diagnosis: CVA Interval history: Patient seen and examined. She has been drowsy since yesterday and not having any episode of lucidity. Not moving any limb spontaneously but does withdrawl her legs upon stimulation to her feet. vitals are stable. 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 Has mild faint snores. vitals appear stable.) Cranial nerve examination: Present: PERRL, no facial asymmetry is present - VTE Documentation of Mechanical Device: Intermittent pneumatic compression device Results - Laboratory Findings CBC and BMP: 11/27/16 08:29 11/25/16 13:53 Abnormal lab findings: Abnormal lab results WBC 12.8 K/mcL (4.3-11.1) H 11/27/16 08:29 Neutrophils # 9.5 K/mcL (1.6-8.9) H 11/27/16 08:29 Glucose 106 mg/dL (70-99) H 11/25/16 13:53 POC Glucose 168 (58-89) H 11/27/16 05:12 Triglycerides 257 mg/dL (< 150) H 11/26/16 09:43 Cholesterol 283 mg/dL (< 200) H 11/26/16 09:43 LDL Cholesterol, Calc 189 mg/dL (0-99) H 11/26/16 09:43 VLDL Cholesterol, Calc 51 mg/dL (< 31) H 11/26/16 09:43 Cholesterol/HDL Ratio 6.6 (0-4.9) H 11/26/16 09:43 Urine Clarity Turbid (Clear) A 11/26/16 01:10 Urine Microscopic RBC 3-5 per hpf (0-3) H 11/26/16 01:10 Ur Squamous Epith Cells Many per lpf (None-Few) H 11/26/16 01:10 Consult Discharge Plan - Plan Referrals: Trinity Mcdaniels, RESIDENTIAL ENERGY AUDITOR [Primary Care Provider] - (OFFICE WILL NOT MAKE AN APPOINTMENT UNTIL THE DISCHARGE ORDER IS WRITTEN. THE OFFICE IS OPEN ON SATURDAYS FROM 8AM TO NOON) Jyoti Davis MD [Partnered Physician] -
--- NOTE | 2016-11-27 11:36 | Palliative - Consult Note ---
<Keo Cantu - Last Filed: 11/27/16 13:42> Date of Encounter: 11/27/16 Time of Encounter: 11:35 - Assessment and Plan (1) Goals of care, counseling/discussion Current Visit: Yes Status: Acute Assessment and plan: Spoke at length with patient's daughter/NOK, Eloise, who made it clear that patient did not want to be on a ventilator; will update code status to DNR-CCA/ DNI I did bring up the option of hospice, which Eloise was familiar with as her eiznna-gy-mei was previously enrolled and had a good experience with it Daughter has decided to enroll her mother in hospice at time; we will discharge her and readmit as general inpatient hospice and transfer her to According to daughter, she had spoken to the patient about DPOA, but she always refused to talk about it as she did not want to be a burden to her children (2) Cerebrovascular accident (CVA) involving cerebellum Current Visit: Yes Status: Acute Assessment and plan: Head CT today showed evolution of large left sided cerebellar infarct Neurology consulted, appreciate recommendations Palliative-CN HPI - Data of Consult Patient: new to practice Consult date: 11/27/16 Requesting Physician: Varun Valdes MD Primary Care Provider: Trinity Mcdaniels CNP - Consult Narrative Palliative Care/Comfort Measures: Hospice care Reason for consult: discuss goals of care, possible hospice History of present illness: Ms. Corral is a 86 year old female who presented to the ED with generalized weakness and altered mental status. She was brought in the afternoon of 11/25/16 and was last seen well on 11/24/16 at 13:30. Imaging revealed an acute, large, left cerebellar infarct in the PICA area. She was not a candidate for tPA since she was out of the window as her symptoms persisted over 24 hours. At time of examination patient was non-responsive to sound or touch. She did not appear to be in distress. Her daughter, Eloise, was in the room during evaluation and provided Mrs. Corral's information. Prior to hospitalization Mrs. Corral lived at home by herself. Her daughter reports that over the past several months her mother's general health was declining with depressed mood and increasing forgetfulness. Until the last few weeks she was able to drive to the grocery store, during her last trip to the store she was experiencing confusion and could not remember to turn the keys in the ignition. Mrs. Corral's eldest son a year ago and was on a ventilator when he passed, after this experience she had expressed not wanting to be on a ventilator. Daughter did not want the patient on a ventilator and code status is updated to DNR - CCA/ DNI. The option of hospice care was discussed with her daughter who wanted to speak with her brothers, Kodi and Laura, prior to making a decision. CC: Varun Valdes MD Past Med Surg Social Fam HX - Past Medical History Medical history: arthritis, hypertension, osteoporosis Psychiatric history: other - Social History Smoking Status: Former smoker Smokeless Tobacco Status: No Alcohol use: heavy Drug use: none - Family History Mother Race: Family Member Ethnicity: Non- Living Status: Age at : 90 Hx Family Cardiac Disorders: Yes (CO) Father Race: Family Member Ethnicity: Non- Living Status: Age at : 96 Hx Family Neurologic Disorders: Yes (Alzheimer's) Brother Race: Family Member Ethnicity: Non- Living Status: Age at : 60 Hx Family Cancer: Yes Sister Race: Family Member Ethnicity: Non- Living Status: Still Living Hx Family Cardiac Disorders: Yes (HD) Medications and Allergies Cholecalciferol (Vitamin D3) [Vitamin D] 2,000 unit PO DAILY 11/25/16 [History] Losartan/HCTZ [Hyzaar 50-12.5 Tablet] 1 each PO DAILY 11/25/16 [History] Meloxicam [Mobic] 7.5 mg PO DAILY 11/25/16 [History] Allergies Unable to Assess Allergy (Verified 11/25/16 21:54) AMS pt unable to confirm ROS unobtainable: due to mental status Palliative Care-Exam - Constitutional Vitals: Temp Pulse Resp BP Pulse Ox 98.7 F 79 18 142/79 92 11/27/16 11:18 11/27/16 08:30 11/27/16 11:18 11/27/16 11:18 11/27/16 11:18 General appearance: Present: no acute distress Exam: unresponsive, but does not appear to be in distress/pain - Head Head Exam: Present: atraumatic, normal inspection, normocephalic - Eye Eye exam: Present: sclera anicteric. Absent: EOMI (pupils non-reactive to light ) - Respiratory Respiratory exam: Present: decreased breath sounds - Cardiovascular Cardiovascular exam: Present: RRR, +S1, +S2 - GI/Abdominal Exam GI/Abdominal exam: Present: diminished bowel sounds, soft. Absent: guarding - Extremities Exam Extremities exam: Absent: pedal edema - Neurological Exam Neurological exam: Absent: alert, no focal deficits Additional comments: unable to assess given unresponsiveness Internal Medicine - CN: Reslt - Labs CBC & Chem 7: 11/27/16 08:29 11/25/16 13:53 Labs: Short CBC 11/27/16 Range/Units 08:29 WBC 12.8 H (4.3-11.1) K/mcL Hgb 13.5 (11.5-15.4) g/dL Hct 39.7 (35.3-44.9) % Plt Count 275 (140-400) K/mcL Neutrophils # 9.5 H (1.6-8.9) K/mcL - ABG Interpretation ABG results: PT/INR, D-dimer PT 10.6 Seconds (9.4-12.1) 11/25/16 13:53 - Impressions Impressions Brain MRI 11/25/16 18:44 IMPRESSION: 1. Large area of acute/early subacute infarction in the left cerebellum within the left posterior inferior cerebellar artery vascular territory. No associated hemorrhage. 2. Diffuse age-related parenchymal volume loss and sequela of moderate chronic microvascular ischemic changes and old bilateral basal ganglia lacunar infarctions. 3. Loss of normal flow related enhancement within much of the left intradural vertebral artery and basilar artery which may be due to slow flow due to severe stenosis or occlusion. The posterior cerebral arteries are not seen. Further evaluation with CTA of the head is recommended. The findings were sent to the Radiology Results Communication [facility] at 8:16 pm on 11/25/2016to be communicated to a licensed caregiver. D/ / 11/25/2016 20:22:06 Silvia Flynn MD / jennifer Interpreting Provider: Silvia Flynn MD Head MRA 11/25/16 18:44 IMPRESSION: 1. Large area of acute/early subacute infarction in the left cerebellum within the left posterior inferior cerebellar artery vascular territory. No associated hemorrhage. 2. Diffuse age-related parenchymal volume loss and sequela of moderate chronic microvascular ischemic changes and old bilateral basal ganglia lacunar infarctions. 3. Loss of normal flow related enhancement within much of the left intradural vertebral artery and basilar artery which may be due to slow flow due to severe stenosis or occlusion. The posterior cerebral arteries are not seen. Further evaluation with CTA of the head is recommended. The findings were sent to the Radiology Results Communication Center at 8:16 pm on 11/25/2016to be communicated to a licensed caregiver. D/ / 11/25/2016 20:22:06 Silvia Flynn MD / jennifer Interpreting Provider: Silvia Flynn MD Chest X-Ray 11/27/16 08:05 IMPRESSION: Overall stable appearing chest without acute focal infiltrate identified. D/ / Ede Oliva MD / Ede Oliva MD Interpreting Provider: Ede Oliva MD Head CT 11/27/16 09:44 IMPRESSION: 1. Evolution of the acute infarcts involving the left cerebellum, left letitia and left thalamus. No evidence of hemorrhagic transformation. Perhaps minimal regional mass effect within the left posterior fossa. No midline shift. 2. There is a new small focus of hypoattenuation within the right cerebellar hemisphere, which could represent a new acute infarct. 3. Chronic lacunar infarcts within the left caudate head and bilateral basal ganglia. 4. Global parenchymal volume loss with chronic microvascular ischemic change. 5. Atherosclerosis. D/ / Denton Paul MD / Denton Paul MD Interpreting Provider: Denton Paul MD Consult Discharge Plan - Plan Instructions: Chronic Hypertension (DC) Referrals: Trinity Mcdaniels CNP [Primary Care Provider] - (OFFICE WILL NOT MAKE AN APPOINTMENT UNTIL THE DISCHARGE ORDER IS WRITTEN. THE OFFICE IS OPEN ON SATURDAYS FROM 8AM TO NOON) Jyoti Davis MD [Partnered Physician] - Palliative Quality Palliative Quality: Screen for Code Status: Yes, Screen for Goals of Care: Yes, Screen for Pain: NA, If Pain Regimen Started, Initiate Bowel Regimen: NA, Screen for Nausea/Vomitting: NA Code Status: 11/25/16 17:16 Resuscitation Status: Active [RES] Routine Comment: Resuscitation Status: DNR-Comfort Care-Arrest <JoshAlejo Kasey - Last Filed: 11/27/16 14:43> Date of Encounter: 11/27/16 Palliative-CN HPI - Data of Consult Requesting Physician: Varun Valdes MD Primary Care Provider: Trinity Mcdaniels CNP - Consult Narrative History of present illness: Ms. Corral is a 86 year old female CC: Varun Valdes MD Palliative Care-Exam - Constitutional Vitals: Temp Pulse Resp BP Pulse Ox 98.7 F 79 18 142/79 92 11/27/16 12:00 11/27/16 12:00 11/27/16 12:00 11/27/16 12:00 11/27/16 12:00 Internal Medicine - CN: Reslt - Labs CBC & Chem 7: 11/27/16 08:29 11/25/16 13:53 Labs: Short CBC 11/27/16 Range/Units 08:29 WBC 12.8 H (4.3-11.1) K/mcL Hgb 13.5 (11.5-15.4) g/dL Hct 39.7 (35.3-44.9) % Plt Count 275 (140-400) K/mcL Neutrophils # 9.5 H (1.6-8.9) K/mcL - ABG Interpretation ABG results: PT/INR, D-dimer PT 10.6 Seconds (9.4-12.1) 11/25/16 13:53 - Impressions Impressions Brain MRI 11/25/16 18:44 IMPRESSION: 1. Large area of acute/early subacute infarction in the left cerebellum within the left posterior inferior cerebellar artery vascular territory. No associated hemorrhage. 2. Diffuse age-related parenchymal volume loss and sequela of moderate chronic microvascular ischemic changes and old bilateral basal ganglia lacunar infarctions. 3. Loss of normal flow related enhancement within much of the left intradural vertebral artery and basilar artery which may be due to slow flow due to severe stenosis or occlusion. The posterior cerebral arteries are not seen. Further evaluation with CTA of the head is recommended. The findings were sent to the Radiology Results Communication Center at 8:16 pm on 11/25/2016to be communicated to a licensed caregiver. D/ : / 11/25/2016 20:22:06 Silvia Flynn MD / jennifer Interpreting Provider: iSlvia Flynn MD Head MRA 11/25/16 18:44 IMPRESSION: 1. Large area of acute/early subacute infarction in the left cerebellum within the left posterior inferior cerebellar artery vascular territory. No associated hemorrhage. 2. Diffuse age-related parenchymal volume loss and sequela of moderate chronic microvascular ischemic changes and old bilateral basal ganglia lacunar infarctions. 3. Loss of normal flow related enhancement within much of the left intradural vertebral artery and basilar artery which may be due to slow flow due to severe stenosis or occlusion. The posterior cerebral arteries are not seen. Further evaluation with CTA of the head is recommended. The findings were sent to the Radiology Results Communication Center at 8:16 pm on 11/25/2016to be communicated to a licensed caregiver. D/ / 11/25/2016 20:22:06 Silvia Flynn MD / jennifer Interpreting Provider: Silvia Flynn MD Chest X-Ray 11/27/16 08:05 IMPRESSION: Overall stable appearing chest without acute focal infiltrate identified. D/ / Ede Oliva MD / Ede Oliva MD Interpreting Provider: Ede Oliva MD Head CT 11/27/16 09:44 IMPRESSION: 1. Evolution of the acute infarcts involving the left cerebellum, left letitia and left thalamus. No evidence of hemorrhagic transformation. Perhaps minimal regional mass effect within the left posterior fossa. No midline shift. 2. There is a new small focus of hypoattenuation within the right cerebellar hemisphere, which could represent a new acute infarct. 3. Chronic lacunar infarcts within the left caudate head and bilateral basal ganglia. 4. Global parenchymal volume loss with chronic microvascular ischemic change. 5. Atherosclerosis. D/ / Denton Paul MD / Denton Paul MD Interpreting Provider: Denton Paul MD - Attending Attestation I examined this patient and my medical decision-making was reviewed with the Resident Physician. I agree with the documented findings, disposition and treatment plan as described except to the extent set forth below. Palliative Quality Code Status: 11/25/16 17:16 Resuscitation Status: Active [RES] Routine Comment: Resuscitation Status: DNR-Comfort Care-Arrest Resuscitation Status: Active [RES] Routine Comment: Resuscitation Status: [id number]
[2016-11-27] MEDS ORDERED: Dexamethasone 4 MG/ML VIAL IVP SCH (13:00)
--- NOTE | 2016-11-27 13:35 | Discharge Summary ---
Date of Encounter: 11/27/16 Time of Encounter: 13:34 - Discharge Diagnosis (1) Cerebrovascular accident (CVA) involving cerebellum Priority: Primary Status: Acute (2) Hypertension Priority: Secondary Status: Chronic Qualifiers: Hypertension type: essential hypertension Qualified Code(s): I10 - Essential (primary) hypertension (3) DVT prophylaxis Priority: Secondary Status: Acute (4) Hyperlipidemia Priority: Secondary Status: Chronic Qualifiers: Hyperlipidemia type: unspecified Qualified Code(s): E78.5 - Hyperlipidemia , unspecified (5) Fever Priority: Primary Status: Acute Qualifiers: Fever type: unspecified Qualified Code(s): R50.9 - Fever, unspecified - Discharge Medications Home Medications: Cholecalciferol (Vitamin D3) [Vitamin D] 2,000 unit PO DAILY 11/25/16 [History] Losartan/HCTZ [Hyzaar 50-12.5 Tablet] 1 each PO DAILY 11/25/16 [History] Meloxicam [Mobic] 7.5 mg PO DAILY 11/25/16 [History] Allergies/Adverse Reactions: Allergies Unable to Assess Allergy (Verified 11/25/16 21:54) AMS pt unable to confirm Procedures/tests Complete & Pending: Procedures Performed prior 72 hours Category Date Time Status CT head/brain wo con [CT] Stat Cat Scan 11/27/16 09:44 Completed MR angio head wo con [MR] Routine MRI 11/25/16 18:44 Completed MR head/brain wo con [MR] Routine MRI 11/25/16 18:44 Completed EV carotid duplex imaging BI Stat Y 11/26/16 17:30 Completed EV echocardiogram Stat Y 11/26/16 17:31 Completed Date of admission: 11/25/16 17:18 Primary care physician: Trinity Mcdaniels CNP Consults: 11/25/16 17:27 Consult to Occupational Therapy [CONS] Routine Comment: Evaluate, develop and implement POC Reason for Consult: CVA Consult to Physical Therapy [CONS] Routine Comment: Evaluate, develop and implement POC Reason for Consult: CVA Consult to [employer] [CONS] Routine Reason for SW Consult: CVA/possible need for ECF @ d/c Consult to Speech Therapy [CONS] Routine Comment: Evaluate, develop and implement POC Reason for Consult: CVA Call Completed: Yes 11/27/16 09:58 Consult to Palliative Care [CONS] Routine Comment: Consulting Provider: Palliative Care [place] Reason for Consult: Large L cerebellar infarct with clinical signs of possible coning, DNR/DNI, please evaluate for hospice, thank you. Call Completed: No Discharging clinician: Varun Valdes Anticipated date of discharge: 11/27/16 - Patient Status Disposition: Hospice - Medical Facility Condition: Critical Functional capacity at discharge: bed bound Overall status at discharge: patient is not back to baseline - Discharge Instructions Follow Up With: Trinity Mcdaniels, PHARMACEUTICAL SALES SPECIALIST [Primary Care Provider] - (OFFICE WILL NOT MAKE AN APPOINTMENT UNTIL THE DISCHARGE ORDER IS WRITTEN. THE OFFICE IS OPEN ON SATURDAYS FROM 8AM TO NOON) Jyoti Davis MD [Partnered Physician] - Interval History: See below Hospital course: 86 F Being managed for Acute L cerebella CVA in PICA territory Seen at bedside with RN and family Patient remains aphasic, unresponsive She had 2 episodes of fever overnight, possibly central She remains hemiplagic on the R side Today her L pupil is larger than the right ECHO essentially normal for age, with no evidence of intracardiac shunt, Doppler of carotids with no stenosis CXR no infiltrates patient has not been responsive to speech/PT/OT, hence no official review neurologist input appreciated Repeat Head CT has been ordered, Will follow, and depending on the result may consult palliative care Condition is critical, prognosis is grave Repeat Brain CT with evolution of infarcts, new R cerebellar infarct, with mass effect Family does not want any aggressive care at this time Palliative care has been consulted and have had a meeting with the family, patient will be discharged to in-patient hospice for comfort care Rest of details as in same day progress note - Time Spent with Patient Total time spent providing and/or coordinating discharge services: Less than 30 minutes - Constitutional Vitals: Temp Pulse Resp BP Pulse Ox 98.7 F 79 18 142/79 92 11/27/16 12:00 11/27/16 12:00 11/27/16 12:00 11/27/16 12:00 11/27/16 12:00 General appearance: Present: A&O X 0 (Unresponsive ) Exam: VSS. BP 189/90 Neuro: Unresponsive, moves L UE to noxious stimuli, pupils are 4mm on the left and 2mm on the right, no corneal or doll reflex, R facial droop, R dense hemiparesis, aphasis. NIHSS at lest 4X-Unable to assess orientation/sensory loss , due to aphasia and altered status HEENT: Moist oral mucosa Chest: CTAB Heart: S1, S2 , RRR, no m/g/r Abdomen: soft, non-tender Extremities: No edema - VTE Documentation of Mechanical Device: Intermittent pneumatic compression device
[2016-11-27 16:03] VITALS: BP 152/84
--- NOTE | 2016-11-27 17:46 | Carotid Imaging Report ---
Carotid Duplex Patient Name:Agnes Corral Order Number:[id number] Procedure Date:11/26/2016 Date:1930ge:86 yrs Gender:Female Lt BP:160 / 90 mmHg Rt.BP:168 / 96 mmHgHeart Rate: Location:[facility] Room #: 2N02 Hydraulic Jack Mechanic:Lisa Caruso RVT Referring MD:John Roper CNP chief drafter:Trinity Mcdaniels, MARIELA Reading MD:Boni Arellano MD Primary Indications:Cerebrovasular accident Impressions: Findings: Bilateral carotid system has nonstenotic plaque. Findings Carotid Duplex: Right: There is nonstenotic plaque in the right distal common carotid artery. There is smooth heterogeneous plaque. There is nonstenotic plaque in the right bifurcation. There is smooth heterogeneous plaque. There is nonstenotic plaque in the right proximal internal carotid artery. There is smooth homogeneous plaque. There is nonstenotic plaque in the right eca. There is smooth heterogeneous plaque. The right vertebral artery was not assessed. Left: There is nonstenotic plaque in the left mid common carotid artery. There is smooth heterogeneous plaque. There is nonstenotic plaque in the left bifurcation. There is smooth homogeneous plaque. There is nonstenotic plaque in the left proximal internal carotid artery. There is smooth homogeneous plaque. Prior Study: No prior study available for comparison. Carotid Results Right PSV EDV Assessment Proximal CCA 76 12 Normal Mid CCA 73 13 Normal Distal CCA 54 12 Non Stenotic Plaque Bifurcation 52 14 Non Stenotic Plaque Proximal ICA 48 17 Non Stenotic Plaque Mid ICA 66 21 Normal Distal ICA 63 21 Normal ECA 68 0 Non Stenotic Plaque Left PSV EDV Assessment Proximal CCA 79 17 Non Stenotic Plaque Mid CCA 86 17 Non Stenotic Plaque Distal CCA 61 11 Normal Bifurcation 44 10 Non Stenotic Plaque Proximal ICA 51 15 Non Stenotic Plaque Mid ICA 60 22 Normal Distal ICA 60 24 Normal ECA 61 0 Normal Vertebral Artery 27 0 Antegrade Flow Ratio's Right ICA/CCA Ratio: 0.90 ICA/CCA Values: 66/73 Left ICA/CCA Ratio: 0.69 ICA/CCA Values: 60/86 Updated by Boni Arellano MD on 11/27/2016 5:39:09 PM electronically signed on 11/27/2016 5:39:24 PM with status of Final
== END 2016-11-27 16:20 | disposition hospice, inpatient (51) | DRG 65 ==
LOC: 2NNU 13:08 → EMEROO 13:08 → 2NNU 17:43
PROVIDERS: ADMIT Hospitalist; ATTEND Internal Medicine

== ENCOUNTER 2016-11-27 13:38 | Inpatient (IN) ==
--- NOTE | 2016-11-27 14:05 | Pallative History & Physical ---
<Keo Cantu - Last Filed: 11/27/16 14:03> Date of Encounter: 11/27/16 Time of Encounter: 13:00 Assessment and Plan (1) Goals of care, counseling/discussion Status: Acute Spoke at length with patient's daughter/NOK, Eloise, who made it clear that patient did not want to be on a ventilator; CODE STATUS = DNR-CCA/DNI I did bring up the option of hospice, which Eloise was familiar with as her [id number] was previously enrolled and had a good experience with it Daughter has decided to enroll her mother in hospice at time; she has been discharged and readmitted as general inpatient hospice and transferred 2A According to daughter, she had spoken to the patient about DPOA, but she always refused to talk about it as she did not want to be a burden to her children (2) Cerebrovascular accident (CVA) involving cerebellum Status: Acute Head CT today showed evolution of large left sided cerebellar infarct Neurology consulted; they have recommended to start her on Decadron 4 mg q6hr to relieve cerebral edema Internal Medicine - H&P: HPI Chief complaint: altered mental status, CVA Admitted From: Hospital to Hospital Transfer Plans for Post Hospital Care: at Medical Facility History of present illness: Ms. Corral is a 86 year old female who presented to the ED with generalized weakness and altered mental status. She was brought in the afternoon of 11/25/16 and was last seen well on 11/24/16 at 13:30. Head CT revealed an acute, large, left cerebellar infarct in the PICA area. She was not a candidate for tPA since she was out of the window as her symptoms persisted over 24 hours. At time of examination patient was non-responsive to sound or touch. She did not appear to be in distress. Her daughter, Eloise, was in the room during evaluation and provided Mrs. Corral's information. Prior to hospitalization Mrs. Corral lived at home by herself. Her daughter reports that over the past several months her mother's general health was declining with depressed mood and increasing forgetfulness. Until the last few weeks she was able to drive to the grocery store, during her last trip to the store she was experiencing confusion and could not remember to turn the keys in the ignition. Mrs. Corral's eldest son a year ago and was on a ventilator when he passed, after this experience she had expressed not wanting to be on a ventilator. Daughter did not want the patient on a ventilator and code status is updated to DNR - CCA/ DNI. The option of hospice care was discussed with her daughter who wanted to speak with her brothers, Kodi and Laura, prior to making a decision. Past Med Surg Social Fam HX - Past Medical History Medical history: arthritis, hypertension, osteoporosis Psychiatric history: other - Social History Smoking Status: Former smoker Smokeless Tobacco Status: No Alcohol use: heavy Drug use: none - Family History Mother Family Member Ethnicity: Non- Living Status: Hx Family Cardiac Disorders: Yes ([place]) Father Family Member Ethnicity: Non- Living Status: Hx Family Neurologic Disorders: Yes (Alzheimer's) Brother Family Member Ethnicity: Non- Living Status: Hx Family Cancer: Yes Sister Family Member Ethnicity: Non- Living Status: Still Living Hx Family Cardiac Disorders: Yes ([place]) Internal Medicine - H&P: Meds Cholecalciferol (Vitamin D3) [Vitamin D] 2,000 unit PO DAILY 11/25/16 [History] Losartan/HCTZ [Hyzaar 50-12.5 Tablet] 1 each PO DAILY 11/25/16 [History] Meloxicam [Mobic] 7.5 mg PO DAILY 11/25/16 [History] Allergies Unable to Assess Allergy (Verified 11/25/16 21:54) AMS pt unable to confirm ROS unobtainable: due to mental status Palliative Care-Exam - Other Additional findings: General appearance: Present: no acute distress Exam: unresponsive, but does not appear to be in distress/pain - Head Head Exam: Present: atraumatic, normal inspection, normocephalic - Eye Eye exam: Present: sclera anicteric. Absent: EOMI (pupils non-reactive to light ) - Respiratory Respiratory exam: Present: decreased breath sounds - Cardiovascular Cardiovascular exam: Present: RRR, +S1, +S2 - GI/Abdominal Exam GI/Abdominal exam: Present: diminished bowel sounds, soft. Absent: guarding - Extremities Exam Extremities exam: Absent: pedal edema - Neurological Exam Neurological exam: Absent: alert, no focal deficits Additional comments: unable to assess given unresponsiveness Palliative Quality Palliative Quality: Screen for Code Status: Yes, Screen for Goals of Care: Yes, Screen for Pain: NA, If Pain Regimen Started, Initiate Bowel Regimen: NA, Screen for Nausea/Vomitting: NA <Alejo Moreno - Last Filed: 11/27/16 14:44> Date of Encounter: 11/27/16 Internal Medicine - H&P: HPI History of present illness: Ms. Corral is a 86 year old female Palliative Quality Code Status: 11/27/16 14:07 Resuscitation Status: Active [RES] Stat Resuscitation Status: DNR-Comfort Care Comment: - Attending Attestation I examined this patient and my medical decision-making was reviewed with the CHILDCARE DIRECTOR/PA/Advanced Practice Nurse/Resident Physician. I agree with the documented findings, disposition and treatment plan as described except to the extent set forth below.
[2016-11-27] MEDS ORDERED: *HR* Promethazine 25 MG/ML VIAL IVP PRN (14:07)
[2016-11-27] MEDS ORDERED: *HR* LORazepam 2 MG/ML VIAL IVP PRN (14:07)
[2016-11-27] MEDS ORDERED: *HR* Morphine 2 MG/ML SYRINGE IVP PRN (14:07)
[2016-11-27] MEDS ORDERED: OxyCODONE CONC 5 MG/0.25 ML ORAL.SYG PO PRN (14:07)
[2016-11-27] MEDS ORDERED: *HR* LORazepam Oral Conc 2 MG/ML PO PRN (14:07)
[2016-11-27] MEDS ORDERED: Scopolamine Patch 1.5 MG PATCH.TD72 TD SCH (14:30)
--- NOTE | 2016-11-27 14:46 | Event Note ---
Date of Encounter: 11/27/16 Time of Encounter: 14:45 Hospice medical planner certification of terminal illness: Hospice benefit. Start: 11/27/2016 Hospice benefit. In: +90 days Palliative performance scale: 10-20% History: Patient with large cerebellar CVA, patient is unable to take any oral nutrition and there will be no artificial nutrition given. Gaby wish no further aggressive care therefore I find These findings support a life expectancy of 6 months or less. I attest that I have compose the above narrative based on my review of the patient's medical records, and or on my examination of the patient. Alejo Moreno M.D. Associate biomedical scientist. [facility]
[2016-11-27] MEDS: Dexamethasone 4 MG/ML VIAL IVP SCH (16:57)
[2016-11-27 20:32] VITALS: BP 166/85
[2016-11-27] MEDS ORDERED: Bisacodyl 10 MG RECTAL SUPPOSITORY RC SCH (21:00)
[2016-11-27] MEDS: Atropine Sulfate 1% 40 DROP/2 ML BOTTLE SL PRN (21:07)
[2016-11-28] MEDS: Dexamethasone 4 MG/ML VIAL IVP SCH (00:16)
[2016-11-28] MEDS: Atropine Sulfate 1% 40 DROP/2 ML BOTTLE SL PRN (00:16)
[2016-11-28] MEDS ORDERED: Hyoscyamine 0.5 MG/ML MLS IVP PRN (01:02)
[2016-11-28] MEDS ORDERED: Acetaminophen 650 MG RECTAL SUPP RC PRN (01:06)
--- NOTE | 2016-11-28 08:58 | Death Note ---
Discharge Sum: Summary - Date and Time Date of admission: 11/27/16 16:30 Date of : 11/28/16 Time of : 02:09 - Summary Details: Ms. Koch is an 86-year-old female patient initially presenting to the hospital on 11/25/2016 with generalized weakness and altered mental status. Workup revealed acute large left cerebellar infarct. Patient was transitioned to general inpatient hospice care for symptom management on 11/27/2016. As the family wished to pursue comfort measures only. Ms. Corral's health continued to decline. On 11/28/2016 at approximately 2:09 AM she was found to be absent of vital signs this was confirmed by 2 RNs. Hospitalist was notified and the patient was pronounced. Hospice was notified. Postmortem care per hospital protocol. - Additional Data Confirmation of as documented by pronouncing clinician: no pulse, no respirations, no heart sounds, pupils fixed and dilated Family: contacted Additional persons at bedside: other (Hospice on-call nurse) Attending/PCP notified?: Yes Attending physician: Alejo Moreno MD Was code activated?: No Autopsy requested?: No latent fingerprint examiner notified?: No Organ bank notified?: Yes Advance directives: Yes Hospice patient?: Yes Discharge Sum: Diag - PCOD Probable Cause of : Respiratory arrest Discharge Sum: Prov - Provider Admitting clinician: Alejo Moreno Attending physician on admission: Alejo Moreno Consults: 11/27/16 14:08 Consult to Palliative Care [CONS] Routine Comment: Consulting Provider: Palliative Care [place] Reason for Consult: cross coverage for GIP Call Completed: Yes Pronouncing clinician: Navarro Cantu
== END 2016-11-28 03:30 | disposition expired | DRG 66 ==
LOC: 2ANU 16:30
PROVIDERS: ADMIT Family Medicine Hospice and Palliative Medicine; ATTEND Family Medicine Hospice and Palliative Medicine